=== PATIENT | female | born 1960 | race African-American/Black ===

== ENCOUNTER 2017-03-31 05:39 | Day surgery (SDC) | payer BC ==
[~2017-03-31] VITALS: Ht 162.6 cm; Wt 95.3 kg
[2017-03-31 06:19] LABS: BASOPHILS % 0.3 % (0.0-2.0); HEMATOCRIT. 36.4 % (36.0-48.0); LYMPHOCYTES % 33.7 % (20.0-50.0); MEAN CORPUSCULAR HEMOGLOBIN 30.3 pg (28.0-32.0); MEAN CORPUSCULAR HGB CONC 33.1 g/dL (31.0-37.0); MEAN CORPUSCULAR VOLUME 91.6 fL (81.0-99.0); MEAN PLATELET VOLUME 10.4 fl (7.4-10.4); MONOCYTES % 11.6 % (2.0-8.0); NEUTROPHILS % 52.4 % (40.0-76.0); PLATELET 141 x1000/uL (130-400); RED BLOOD CELL COUNT 3.97 mill/uL (4.2-5.4); RED CELL DISTRIBUTION WIDTH 13.8 % (11.6-14.6); WHITE BLOOD COUNT 2.9 x1000/uL (4.5-11.0)
[2017-03-31] MEDS ORDERED: LACTATED RINGERS 1,000 ML IV SCH (06:30)
[2017-03-31] MEDS ORDERED: MIDAZOLAM HCL 2 MG/2 ML VIAL ONE (07:46)
[2017-03-31] MEDS ORDERED: FENTANYL CITRATE/PF 50MCG/ML 2ML VIAL ONE (07:46)
[2017-03-31] MEDS ORDERED: PROPOFOL 200MG/20ML VIAL IV ONE ×2 (07:56→11:26)
[2017-03-31] MEDS ORDERED: LIDOCAINE HCL 1% 20ML VIAL (Pyxis) INJ ONE (07:56)
[2017-03-31] MEDS ORDERED: ONDANSETRON HCL 4MG/2ML VIAL IV PRN (08:00)
[2017-03-31] MEDS ORDERED: HYDROMORPHONE HCL/PF 2MG/ML CPJ IV PRN (08:00)
[2017-03-31] MEDS ORDERED: MEPERIDINE HCL/PF 25MG/ML CPJ IV PRN (08:00)
[2017-03-31] MEDS ORDERED: LABETALOL HCL 20MG/4ML CARPUJECT IV PRN (08:00)
[2017-03-31] MEDS ORDERED: NISO40TA3 PO (08:44)
[2017-03-31] MEDS ORDERED: KETOROLAC 60MG/2ML VIAL IM ONE (11:26)
[2017-03-31] MEDS ORDERED: ONDANSETRON HCL 4MG/2ML VIAL ONE (11:26)
[2017-03-31] MEDS ORDERED: DEXAMETHASONE 4MG/ML 1ML VIAL ONE (11:26)
[2017-03-31] MEDS ORDERED: ESMOLOL HCL 10MG/ML 10ML VIAL IV ONE (11:48)
== END 2017-03-31 09:26 | disposition home or self-care (01) ==
LOC: OR 05:39
PROVIDERS: ATTEND Pathology Anatomic Pathology & Clinical Pathology
DX: D46.Z Other myelodysplastic syndromes (principal); I10 Essential (primary) hypertension; D72.818 Other decreased white blood cell count; M19.90 Unspecified osteoarthritis, unspecified site; E66.01 Morbid (severe) obesity due to excess calories
CPT/HCPCS: 36415; 38220; 85025; 85060; 85097; 88313; J1100; J1885; J2250; J2405; J3010; J3490; J7120; J2704

== ENCOUNTER → 2020-01-18 | Outpatient (CLI) | payer BC ==
[~2020-01-18] MED LIST: NISO40TA3 PO
== END | disposition home or self-care (01) ==
LOC: MAMMO 10:42
DX: Z12.31 Encounter for screening mammogram for malignant neoplasm of breast (principal); N63.20 Unspecified lump in the left breast, unspecified quadrant; I10 Essential (primary) hypertension; D72.819 Decreased white blood cell count, unspecified
CPT/HCPCS: 77067